=== PATIENT | male | born 1990 | race Caucasian/White ===

== ENCOUNTER 2017-08-26 02:28 | Emergency (ER) | payer OTHER ==
[~2017-08-26] VITALS: Ht 177.8 cm; Wt 129.5 kg
[2017-08-26] MEDS ORDERED: LIDOCAINE 1% MDV 20ML VIAL As Ordered ONE (03:04)
[2017-08-26] MEDS ORDERED: LIDOCAINE 1% MDV 20ML VIAL SC SCH (03:15)
[2017-08-26] MEDS ORDERED: LIDOCAINE 1% SDV INJ 30 ML VIAL SC SCH (03:15)
[2017-08-26] MEDS ORDERED: TETANUS/DIPHTHERIA TOX ADSORB ADULT 0.5ML SYR/VIAL (90714) IM ONE (03:15)
[2017-08-26 03:50] VITALS: BP 146/98
--- NOTE | 2017-08-26 08:20 | REP ---
RIGHT FOOT, TWO VIEWS: HISTORY: Foreign body. There is no acute fracture or dislocation. The joint spaces are normal in appearance. A punctate radiopaque density is present in the soft tissue dorsal to the 4th and 5th proximal phalanges. IMPRESSION: There is no acute fracture or dislocation. Signed by Tera Mariee MD 08/26/2017 08:29 A
== END 2017-08-26 03:56 | disposition home or self-care (01) ==
LOC: M ED 02:28
DX: S91.311A Laceration without foreign body, right foot, initial encounter (principal); W25.XXXA Contact with sharp glass, initial encounter; Y92.099 Unspecified place in other non-institutional residence as the place of occurrence of the external cause; Y93.9 Activity, unspecified; Y99.9 Unspecified external cause status